=== PATIENT | male | born 1985 | race Caucasian/White ===

== ENCOUNTER 2017-07-21 01:09 | Emergency (ER) | payer BC ==
[~2017-07-21] VITALS: Ht 182.9 cm; Wt 76.3 kg
[2017-07-21 02:30] LABS: DAU SCREEN DISCLAIMER
[2017-07-21 02:35] LABS: BLOOD UREA NITROGEN 7 mg/dL (7-18)
[2017-07-21 02:40] LABS: HEMOGLOBIN 14.7 g/dL (13.7-18.0); WHITE BLOOD COUNT 7.6 x10^3/uL (3.4-10)
[2017-07-21] MEDS ORDERED: advil (03:23)
[2017-07-21 03:24] VITALS: BP 121/76
== END 2017-07-21 03:26 | disposition home or self-care (01) ==
LOC: ED 03:04
DX: F15.10 Other stimulant abuse, uncomplicated (principal); F43.10 Post-traumatic stress disorder, unspecified
CPT/HCPCS: 36415; 70450; 80048; 80307; 81003; 82040; 85025; 93005; 99285; G0479

== ENCOUNTER 2018-04-13 17:07 | Emergency (ER) | payer BC ==
[~2018-04-13] VITALS: Ht 182.9 cm; Wt 76.6 kg
[~2018-04-13 17:07] MED LIST: advil
[2018-04-13 17:19] VITALS: BP 114/82
[2018-04-13] MEDS ORDERED: METHOCARBAMOL 750 MG TABLET PO ONE (17:30)
[2018-04-13] MEDS ORDERED: HYDROcodone/APAP 5/325 TABLET PO ONE (17:30)
[2018-04-13] MEDS ORDERED: ONDANSETRON ODT 4 MG PO ONE (17:30)
[2018-04-13] MEDS ORDERED: KETOROLAC 30 MG/1 ML IM ONE (17:30)
[2018-04-13 18:32] LABS: BASOPHILS # (AUTO) 0.05 x10^3/uL (0-0.1); BASOPHILS % (AUTO) 1 % (0-1); EOSINOPHILS # (AUTO) 0.29 x10^3/uL (0-0.4); EOSINOPHILS % (AUTO) 4 % (1-7); LYMPHOCYTES # (AUTO) 3.16 x10^3/uL (1-3.4); LYMPHOCYTES % (AUTO) 39 % (22-44); MD NO; MEAN CORPUSCULAR HEMOGLOBIN 32.2 pg (27.5-34.5); MEAN CORPUSCULAR HGB CONC 34.7 g/dL (33.2-36.2); MEAN PLATELET VOLUME 8.7 fL (7.4-10.4); MONOCYTES # (AUTO) 0.88 x10^3/uL (0.2-0.8); MONOCYTES % (AUTO) 11 % (2-9); NEUTROPHILS # (AUTO) 3.77 x10^3/uL (1.8-6.8); NEUTROPHILS % (AUTO) 46 % (42-75); PLATELET COUNT 281 x10^3/uL (130-400); RED BLOOD COUNT 4.41 x10^6/uL (4.38-5.82); RED CELL DISTRIBUTION WIDTH 13.6 % (9.4-14.8)
[2018-04-13 18:43] LABS: ALANINE AMINOTRANSFERASE 24 U/L (12-78); ALBUMIN 3.9 g/dL (3.4-5.0); ANION GAP 5 mmol/L (5-15); CHLORIDE 107 mmol/L (98-107); CREATININE 0.96 mg/dL (0.7-1.3)
[2018-04-13 18:46] LABS: ALKALINE PHOSPHATASE 79 U/L (45-117); BILIRUBIN,TOTAL 0.4 mg/dL (0.2-1.0); TOTAL PROTEIN 7.4 g/dL (6.4-8.2)
[2018-04-13] MEDS ORDERED: METHOCARBAMOL 750 MG TABLET ONE (18:46)
[2018-04-13] MEDS ORDERED: KETOROLAC 30 MG/1 ML ONE (18:46)
[2018-04-13] MEDS ORDERED: ONDANSETRON ODT 4 MG ONE (18:47)
[2018-04-13] MEDS ORDERED: HYDROcodone/APAP 5/325 TABLET ONE (18:47)
[2018-04-13 19:14] LABS: MICROSCOPIC NOT IND
[2018-04-13 19:24] LABS: CULTURE INDICATED? NO
== END 2018-04-13 19:54 | disposition home or self-care (01) ==
LOC: ED 19:50
DX: S39.012A Strain of muscle, fascia and tendon of lower back, initial encounter (principal); M54.41 Lumbago with sciatica, right side; X58.XXXA Exposure to other specified factors, initial encounter; Y93.89 Activity, other specified; Y99.8 Other external cause status; Y92.89 Other specified places as the place of occurrence of the external cause
CPT/HCPCS: 36415; 72110; 72190; 80053; 81003; 85025; 96372; 99285; J1885; Q0162

== ENCOUNTER 2019-03-13 14:17 | Emergency (ER) | payer SELFPAY ==
[~2019-03-13] VITALS: Ht 182.9 cm; Wt 87.4 kg
[2019-03-13 14:19] VITALS: BP 138/103
--- NOTE | 2019-03-13 14:35 | NUR ---
MD TO BEDSIDE FOR ASSESSMENT. WAITING ORDERS AT THIS TIME
[2019-03-13] MEDS ORDERED: MECLIZINE CHEWABLE 25 MG TAB ONE (14:52)
[2019-03-13] MEDS ORDERED: MECLIZINE CHEWABLE 25 MG TAB PO ONE (15:00)
--- NOTE | 2019-03-13 15:18 | NUR ---
PT TAKEN TO CT
[2019-03-13 15:25] LABS: BASOPHILS # (AUTO) 0.06 x10^3/uL (0-0.1); BASOPHILS % (AUTO) 1 % (0-1); EOSINOPHILS # (AUTO) 0.16 x10^3/uL (0-0.4); EOSINOPHILS % (AUTO) 2 % (1-7); LYMPHOCYTES # (AUTO) 2.68 x10^3/uL (1-3.4); LYMPHOCYTES % (AUTO) 34 % (22-44); MD NO; MEAN CORPUSCULAR HEMOGLOBIN 31.5 pg (27.5-34.5); MEAN CORPUSCULAR HGB CONC 33.6 g/dL (33.2-36.2); MEAN CORPUSCULAR VOLUME 93.8 fL (81-97); MEAN PLATELET VOLUME 8.5 fL (7.4-10.4); MONOCYTES # (AUTO) 0.68 x10^3/uL (0.2-0.8); MONOCYTES % (AUTO) 9 % (2-9); NEUTROPHILS # (AUTO) 4.41 x10^3/uL (1.8-6.8); NEUTROPHILS % (AUTO) 55 % (42-75); PLATELET COUNT 291 x10^3/uL (130-400); RED BLOOD COUNT 4.93 x10^6/uL (4.38-5.82); RED CELL DISTRIBUTION WIDTH 13.6 % (9.4-14.8)
[2019-03-13 15:30] LABS: ALBUMIN 4.2 g/dL (3.4-5.0); ANION GAP 7 mmol/L (5-15); CALCIUM 9.1 mg/dL (8.5-10.1); CHLORIDE 106 mmol/L (98-107)
[2019-03-13 15:34] LABS: ALANINE AMINOTRANSFERASE 42 U/L (12-78); ALKALINE PHOSPHATASE 73 U/L (45-117); BILIRUBIN,TOTAL 1.1 mg/dL (0.2-1.0); CREATININE 0.91 mg/dL (0.7-1.3); TOTAL PROTEIN 7.9 g/dL (6.4-8.2)
--- NOTE | 2019-03-13 15:50 | NUR ---
ALL RESULTS BACK AT THIS TIME, CHART UP FOR RECHECK
--- NOTE | 2019-03-13 16:02 | NUR ---
PT STATES ON THE EDGE OF PANICKING D/T FEELING THOUGH HE IS IN "REM" WITHOUT BEING ASLEEP. PT BECOMING AGGITATED. UPSET THAT PULSE OX STOPPED READING BECAUSE NUMBERS SOOTH HIM. PULSE OX FIXED. ALL VSS. NOTIFIED, AWAITING RECHECK AND FURTHER ORDERS AT THIS TIME.
== END 2019-03-13 16:26 | disposition home or self-care (01) ==
LOC: ED 16:19
DX: H81.399 Other peripheral vertigo, unspecified ear (principal); R53.1 Weakness; J32.0 Chronic maxillary sinusitis; I10 Essential (primary) hypertension; F43.10 Post-traumatic stress disorder, unspecified; Z87.891 Personal history of nicotine dependence
CPT/HCPCS: 36415; 70450; 80053; 85025; 93005; 99284

== ENCOUNTER 2020-03-12 11:40 | Emergency (ER) | payer SELFPAY ==
[~2020-03-12] VITALS: Ht 185.4 cm; Wt 83.4 kg
--- NOTE | 2020-03-12 12:04 | NUR ---
PATIENT ARRIVES TREMULOUS BUE AND ANXIOUS. PATIENT REPORTS HE DOES HAVE A HISTORY OF BIPOLAR AND MENTAL HEALTH ISSUES, BUT FEELS THIS IS UNRELATED. PATIENT QUIT DRINKING THREE DAYS AGO. HE IS ANXIOUS. HE STATES HE FEELS CONFUSED RECENTLY AND GETTING WORSE LAST TWO WEEKS.
[2020-03-12] MEDS ORDERED: LORazepam 1MG TABLET ONE (12:17)
[2020-03-12] MEDS ORDERED: THIAMINE 100MG TABLET ONE (12:17)
--- NOTE | 2020-03-12 12:20 | NUR ---
PATIENT TELLING ME STORY OF HOW HIS PARTNER IS A PATIENT HERE FOR HYPOMAGNESIUM AND BROUGHT HERE YESTERDAY. HE IS ANXIOUS. MEDICATED.
[2020-03-12 12:24] LABS: BASOPHILS # (AUTO) 0.02 x10^3/uL (0-0.1); BASOPHILS % (AUTO) 0 % (0-1); EOSINOPHILS # (AUTO) 0.06 x10^3/uL (0-0.4); EOSINOPHILS % (AUTO) 1 % (1-7); LYMPHOCYTES # (AUTO) 1.75 x10^3/uL (1-3.4); LYMPHOCYTES % (AUTO) 26 % (22-44); MD NO; MEAN CORPUSCULAR HEMOGLOBIN 32.6 pg (27.5-34.5); MEAN CORPUSCULAR HGB CONC 34.3 g/dL (33.2-36.2); MEAN CORPUSCULAR VOLUME 94.9 fL (81-97); MEAN PLATELET VOLUME 8.6 fL (7.4-10.4); MONOCYTES # (AUTO) 0.85 x10^3/uL (0.2-0.8); MONOCYTES % (AUTO) 13 % (2-9); NEUTROPHILS # (AUTO) 4.09 x10^3/uL (1.8-6.8); NEUTROPHILS % (AUTO) 61 % (42-75); PLATELET COUNT 325 x10^3/uL (130-400); RED BLOOD COUNT 4.93 x10^6/uL (4.38-5.82); RED CELL DISTRIBUTION WIDTH 13.6 % (9.4-14.8)
[2020-03-12] MEDS ORDERED: THIAMINE 100MG TABLET PO ONE (12:30)
[2020-03-12] MEDS ORDERED: LORazepam 1MG TABLET PO ONE (12:30)
[2020-03-12 12:33] LABS: ALANINE AMINOTRANSFERASE 20 U/L (12-78); ALBUMIN 4.2 g/dL (3.4-5.0); ANION GAP 8 mmol/L (5-15); CALCIUM 9.4 mg/dL (8.5-10.1); CHLORIDE 104 mmol/L (98-107); CREATININE 0.99 mg/dL (0.7-1.3)
[2020-03-12 12:35] LABS: ALKALINE PHOSPHATASE 70 U/L (45-117)
[2020-03-12 13:48] VITALS: BP 133/78
== END 2020-03-12 13:53 | disposition home or self-care (01) ==
LOC: ED 13:30
DX: F10.239 Alcohol dependence with withdrawal, unspecified (principal); R00.0 Tachycardia, unspecified; H53.8 Other visual disturbances; I10 Essential (primary) hypertension; F17.200 Nicotine dependence, unspecified, uncomplicated; Y90.9 Presence of alcohol in blood, level not specified
CPT/HCPCS: 36415; 80053; 83690; 83735; 85025; 93005; 99284

== ENCOUNTER 2020-05-17 13:57 | Emergency (ER) | payer MEDICAID ==
[~2020-05-17] VITALS: Ht 185.4 cm; Wt 81.0 kg
[2020-05-17 14:00] VITALS: BP 126/86
--- NOTE | 2020-05-17 14:22 | NUR ---
PT C/O TREMORES AFTER STOPPING ALCOHOL ON TUESDAY. PT WAS DRINKING 6-7 BERS A DAY BUT HAD GOTTEN UP TO 9 BEERS A DAY PRIOR TO STOPPING. PT APPEARS ANXIOUS BUT NOT SIGNIFICANTLY TREMULOUS. CHART UP FOR MD. +NAUSEA.
== END 2020-05-17 15:20 | disposition home or self-care (01) ==
LOC: ED 14:58
DX: F10.239 Alcohol dependence with withdrawal, unspecified (principal); F41.1 Generalized anxiety disorder; R45.4 Irritability and anger; R11.0 Nausea; I10 Essential (primary) hypertension; F17.200 Nicotine dependence, unspecified, uncomplicated; Y90.9 Presence of alcohol in blood, level not specified
CPT/HCPCS: 99283